=== PATIENT | female | born 1970 | race Hispanic/Latino ===

== ENCOUNTER 2021-04-07 03:15 | Inpatient (IN) | payer SELFPAY ==
[2021-04-07] VITALS (9 sets, daily range): BP systolic 100–149; BP diastolic 60–88
[~2021-04-07] VITALS: Ht 162.6 cm; Wt 47.9 kg
[2021-04-07] MEDS ORDERED: 0.9%NACL 1000ML 1,000 ML IV ONE (04:00)
[2021-04-07] MEDS ORDERED: LORAZEPAM 2 MG/ML 1 ML VIAL IVP ONE ×2 (04:00→07:00)
[2021-04-07 05:24] LABS: BASOPHILS % (AUTO) 0.7 % (0.0-5.0); EOSINOPHILS % (AUTO) 1.3 % (0.0-8.0); HEMATOCRIT 33.6 % (36-48); LYMPHOCYTES % (AUTO) 13.6 % (21.0-51.0); MEAN CORPUSCULAR HEMOGLOBIN 36.1 pg (27.0-33.0); MEAN CORPUSCULAR HGB CONC 35.4 g/dL (32.0-36.0); MEAN CORPUSCULAR VOLUME 101.8 fL (79-99); PLATELET COUNT (AUTO) 110 K/uL (130-400); RED CELL DISTRIBUTION WIDTH 11.5 % (11.0-15.5)
[2021-04-07 05:35] LABS: INR 1.03 (0.85-1.15); PROTHROMBIN TIME 11.2 SEC (9.6-11.6)
[2021-04-07 05:36] LABS: PARTIAL THROMBOPLASTIN TIME 26.6 SEC (26.3-35.5)
[2021-04-07 05:39] LABS: ALBUMIN 4.5 g/dL (3.5-5.0); BILIRUBIN,DIRECT 0.4 mg/dL (0.0-0.3); BILIRUBIN,TOTAL 1.5 mg/dL (0.2-1.0); CREATININE 0.8 mg/dL (0.5-1.5); MAGNESIUM 1.5 mg/dL (1.80-2.40); TOTAL PROTEIN, SERUM 8.7 g/dL (6.0-8.3)
[2021-04-07 05:56] LABS: POTASSIUM 2.9 mmol/L (3.5-5.1)
[2021-04-07] MEDS ORDERED: KCL 20 MEQ ERTAB PO ONE ×2 (06:00→06:11)
[2021-04-07] MEDS: MAGNESIUM OXIDE 400 MG TABLET PO SCH (06:00)
[2021-04-07] MEDS ORDERED: MAGNESIUM OXIDE 400 MG TABLET PO ONE (06:11)
[2021-04-07] MEDS ORDERED: LORAZEPAM 2 MG/ML 1 ML VIAL IVP SCH (06:30)
[2021-04-07] MEDS ORDERED: POTASSIUM CHLORIDE 10% ELIXIR 20 MEQ/15 ML UDCUP PO PRN (07:30)
[2021-04-07] MEDS ORDERED: ACETAMINOPHEN 325 MG TAB PO PRN ×2 (07:30)
[2021-04-07] MEDS: THIAMINE HCL 100 MG, FOLIC ACID 1 MG, M.V.I. IV [ADULT] 10 ML in 0.9%NACL 1000ML 1,000 ML IV SCH (07:30)
[2021-04-07] MEDS ORDERED: LIDOCAINE HCL-MPF 1% 2ML VIAL IV PRN (07:30)
[2021-04-07] MEDS ORDERED: CHLORDIAZEPOXIDE HCL 25 MG CAP PO PRN (07:30)
[2021-04-07] MEDS ORDERED: ONDANSETRON 4MG INJ IV PRN (07:30)
[2021-04-07] MEDS ORDERED: PHARMACY COMMUNICATION MISC PRN (07:30)
[2021-04-07] MEDS ORDERED: LACTULOSE 20 GM/30 ML UDCUP PO PRN (07:30)
[2021-04-07] MEDS ORDERED: LORAZEPAM 2 MG/ML 1 ML VIAL IVP PRN (07:30)
[2021-04-07] MEDS: CHLORDIAZEPOXIDE HCL 25 MG CAP PO SCH ×4 (08:17→20:00)
[2021-04-07 10:01] LABS: INR 1.04 (0.85-1.15); PROTHROMBIN TIME 11.3 SEC (9.6-11.6)
[2021-04-07 10:02] LABS: PARTIAL THROMBOPLASTIN TIME 25.6 SEC (26.3-35.5)
[2021-04-07 11:13] LABS: CREATININE 0.4 mg/dL (0.5-1.5); MAGNESIUM 1.7 mg/dL (1.80-2.40)
[2021-04-07 11:15] LABS: POTASSIUM 2.7 mmol/L (3.5-5.1)
[2021-04-07] MEDS: POTASSIUM CHLORIDE 10MEQ/100ML 100 ML IV PRN ×2 (11:56→17:33)
[2021-04-07] MEDS: LORAZEPAM 2 MG/ML 1 ML VIAL IVP SCH ×3 (13:00→21:00)
[2021-04-07] MEDS ORDERED: CHLORDIAZEPOXIDE HCL 25 MG CAP PO ONE (14:00)
[2021-04-07] MEDS: MAGNESIUM 2GM PREMIX 50ML 50 ML IV PRN (16:12)
[2021-04-07] MEDS: LORAZEPAM 2 MG/ML 1 ML VIAL IVP PRN (18:41)
[2021-04-08] MEDS: CHLORDIAZEPOXIDE HCL 25 MG CAP PO SCH
[2021-04-08] MEDS: KCL 20 MEQ ERTAB PO PRN ×4 (00:23→06:44)
[2021-04-08] MEDS: LORAZEPAM 2 MG/ML 1 ML VIAL IVP PRN ×2 (00:30→04:26)
[2021-04-08] MEDS: CHLORDIAZEPOXIDE HCL 25 MG CAP PO PRN ×2 (00:30→04:26)
[2021-04-08] MEDS: LORAZEPAM 2 MG/ML 1 ML VIAL IVP SCH ×3 (00:35→07:40)
[2021-04-08 04:00] VITALS: BP 100/62
[2021-04-08] MEDS: MAGNESIUM OXIDE 400 MG TABLET PO SCH (04:34)
[2021-04-08 05:19] LABS: BASOPHILS % (AUTO) 1.4 % (0.0-5.0); EOSINOPHILS % (AUTO) 2.2 % (0.0-8.0); HEMATOCRIT 30.6 % (36-48); LYMPHOCYTES % (AUTO) 13.5 % (21.0-51.0); MEAN CORPUSCULAR HEMOGLOBIN 35.7 pg (27.0-33.0); MEAN CORPUSCULAR HGB CONC 34.6 g/dL (32.0-36.0); MONOCYTES % (AUTO) 16.6 % (3.0-13.0); NEUTROPHILS % (AUTO) 65.8 % (40.0-77.0); PLATELET COUNT (AUTO) 116 K/uL (130-400); RED BLOOD CELL COUNT(AUTO) 2.97 MIL/uL (4.00-5.50); RED CELL DISTRIBUTION WIDTH 11.6 % (11.0-15.5); WHITE BLOOD COUNT (AUTO) 5.9 K/uL (4.8-10.8)
[2021-04-08 05:28] LABS: CREATININE 0.4 mg/dL (0.5-1.5); POTASSIUM 3.2 mmol/L (3.5-5.1)
[2021-04-08] MEDS: THIAMINE HCL 100 MG, FOLIC ACID 1 MG, M.V.I. IV [ADULT] 10 ML in 0.9%NACL 1000ML 1,000 ML IV SCH ×2 (07:30→12:15)
[2021-04-08 08:00] VITALS: BP 119/76
[2021-04-08] MEDS: THIAMINE HCL 100 MG/ML 2ML VIAL IM SCH (09:27)
[2021-04-08] MEDS: FOLIC ACID 5 MG/ML VIAL IV SCH (09:27)
[2021-04-08] MEDS ORDERED: COMPOUND IV REFRIGERATED 1 EACH IVSOLN MISC PRN (09:30)
[2021-04-08 11:42] VITALS: BP 123/72
[2021-04-08 16:17] VITALS: BP 95/65
[2021-04-08 20:08] VITALS: BP 127/76
[2021-04-09] VITALS (7 sets, daily range): BP systolic 99–138; BP diastolic 55–86
[2021-04-09] MEDS: KCL 20 MEQ ERTAB PO PRN ×2 (01:50→03:58)
[2021-04-09 06:13] LABS: EOSINOPHILS % (AUTO) 2.4 % (0.0-8.0); HEMATOCRIT 29.9 % (36-48); MEAN CORPUSCULAR HEMOGLOBIN 35.8 pg (27.0-33.0); MEAN CORPUSCULAR HGB CONC 33.8 g/dL (32.0-36.0); MONOCYTES % (AUTO) 21.2 % (3.0-13.0); NEUTROPHILS % (AUTO) 60.2 % (40.0-77.0); PLATELET COUNT (AUTO) 138 K/uL (130-400); RED BLOOD CELL COUNT(AUTO) 2.82 MIL/uL (4.00-5.50); RED CELL DISTRIBUTION WIDTH 11.6 % (11.0-15.5); WHITE BLOOD COUNT (AUTO) 5.8 K/uL (4.8-10.8)
[2021-04-09 06:43] LABS: ALBUMIN 3.2 g/dL (3.5-5.0); BILIRUBIN,TOTAL 0.5 mg/dL (0.2-1.0); CREATININE 0.4 mg/dL (0.5-1.5); MAGNESIUM 1.5 mg/dL (1.80-2.40); POTASSIUM 3.4 mmol/L (3.5-5.1); TOTAL PROTEIN, SERUM 6.7 g/dL (6.0-8.3)
[2021-04-09] MEDS: THIAMINE HCL 100 MG/ML 2ML VIAL IM SCH (06:58)
[2021-04-09] MEDS: FOLIC ACID 5 MG/ML VIAL IV SCH (06:58)
[2021-04-09] MEDS: THIAMINE HCL 100 MG, FOLIC ACID 1 MG, M.V.I. IV [ADULT] 10 ML in 0.9%NACL 1000ML 1,000 ML IV SCH (08:32)
[2021-04-09] MEDS: MAGNESIUM 2GM PREMIX 50ML 50 ML IV PRN (09:21)
[2021-04-09] MEDS: NICOTINE 14 MG/ 24 HR PATCH TD SCH (12:30)
[2021-04-09] MEDS ORDERED: NICOTINE 14 MG/ 24 HR PATCH TD SCH (12:30)
[2021-04-10] VITALS: BP 105/69
[2021-04-10 00:08] LABS: APPEARANCE,URINE Clear (CLEAR); BILIRUBIN,URINE Negative (NEGATIVE); COLOR,URINE Yellow (YELLOW); GLUCOSE, URINE (UA) Negative (NEGATIVE); KETONES,URINE Negative (NEGATIVE); LEUKOCYTE ESTERASE ,URINE Small (NEGATIVE); NITRATE,URINE Negative (NEGATIVE); OCCULT BLOOD,URINE Negative (NEGATIVE); PROTEIN,URINE Negative (NEGATIVE)
[2021-04-10 00:15] LABS: BACTERIA,URINE Few /HPF (None Seen); RBC,URINE None Seen /HPF (0-1); SQUAMOUS EPITHELIAL CELL,UR Few /HPF (0-2)
[2021-04-10 00:16] LABS: AMPHET/METH SCREEN,URINE NEGATIVE (NEGATIVE); BARBITURATE SCREEN, URINE NEGATIVE (NEGATIVE); BENZODIAZEPINES SCREEN,URINE POSITIVE (NEGATIVE); CANNABINOID SCREEN,URINE NEGATIVE (NEGATIVE); COCAINE SCREEN,URINE NEGATIVE (NEGATIVE); OPIATE SCREEN,URINE NEGATIVE (NEGATIVE); PHENCYCLIDINE SCREEN,URINE NEGATIVE (NEGATIVE)
[2021-04-10 03:59] VITALS: BP 101/53
[2021-04-10 06:08] LABS: BASOPHILS % (AUTO) 0.8 % (0.0-5.0); EOSINOPHILS % (AUTO) 2.6 % (0.0-8.0); HEMATOCRIT 32.9 % (36-48); LYMPHOCYTES % (AUTO) 16.3 % (21.0-51.0); MEAN CORPUSCULAR HEMOGLOBIN 36.3 pg (27.0-33.0); MEAN CORPUSCULAR HGB CONC 33.7 g/dL (32.0-36.0); MEAN CORPUSCULAR VOLUME 107.5 fL (79-99); MONOCYTES % (AUTO) 24.2 % (3.0-13.0); NEUTROPHILS % (AUTO) 55.5 % (40.0-77.0); PLATELET COUNT (AUTO) 188 K/uL (130-400); RED BLOOD CELL COUNT(AUTO) 3.06 MIL/uL (4.00-5.50); RED CELL DISTRIBUTION WIDTH 11.8 % (11.0-15.5); WHITE BLOOD COUNT (AUTO) 6.4 K/uL (4.8-10.8)
[2021-04-10 06:28] LABS: ALBUMIN 3.8 g/dL (3.5-5.0); BILIRUBIN,TOTAL 0.5 mg/dL (0.2-1.0); CREATININE 0.5 mg/dL (0.5-1.5); MAGNESIUM 1.6 mg/dL (1.80-2.40); POTASSIUM 3.3 mmol/L (3.5-5.1); TOTAL PROTEIN, SERUM 7.7 g/dL (6.0-8.3)
[2021-04-10] MEDS: MAGNESIUM 2GM PREMIX 50ML 50 ML IV PRN (07:42)
[2021-04-10 07:58] VITALS: BP 132/83
[2021-04-10] MEDS: NICOTINE 14 MG/ 24 HR PATCH TD SCH (09:49)
[2021-04-10] MEDS: THIAMINE HCL 100 MG/ML 2ML VIAL IM SCH (09:49)
[2021-04-10] MEDS: FOLIC ACID 5 MG/ML VIAL IV SCH (09:49)
[2021-04-10] MEDS: KCL 20 MEQ ERTAB PO PRN (09:51)
[2021-04-10 11:42] VITALS: BP 92/59
[2021-04-10] MEDS ORDERED: FOLI0.4T6 PO (12:19)
[2021-04-10] MEDS ORDERED: THIA100T75 PO (12:19)
[2021-04-10] MEDS ORDERED: MAGN400C PO (12:19)
== END 2021-04-10 16:35 | disposition home or self-care (01) | DRG 92 ==
LOC: EDH 03:15 → OBSVTOIN 03:16 → EDHIP 03:16 → UNDOADMOB 07:06 → 4BH 13:31 → 4CH 04-09 17:47
PROVIDERS: ADMIT Hospitalist; ATTEND Hospitalist
DX: G25.2 Other specified forms of tremor (principal); E87.1 Hypo-osmolality and hyponatremia; E44.0 Moderate protein-calorie malnutrition; Z68.1 Body mass index [BMI] 19.9 or less, adult; F10.231 Alcohol dependence with withdrawal delirium; F10.229 Alcohol dependence with intoxication, unspecified; E87.6 Hypokalemia; Y90.0 Blood alcohol level of less than 20 mg/100 ml; D53.9 Nutritional anemia, unspecified; D69.6 Thrombocytopenia, unspecified; E83.42 Hypomagnesemia; R74.01 Elevation of levels of liver transaminase levels
CPT/HCPCS: 36415; 70450; 71045; 76705; 80048; 80053; 80076; 80305; 81001; 82140; 82948; 83690; 83735; 84132; 85025; 85610; 85730; 93005; 97039; G0378; J2060; J3411; J3475; J3490; J7030

== ENCOUNTER 2022-07-05 16:11 | Emergency (ER) | payer OTHER ==
[~2022-07-05] VITALS: Ht 165.1 cm; Wt 47.6 kg
[~2022-07-05 16:11] MED LIST: FOLI0.4T6 PO; MAGN400C PO; THIA100T75 PO
[2022-07-05 16:22] VITALS: BP 133/91
[2022-07-05] MEDS ORDERED: 0.9%NACL 1000ML 1,000 ML IV ONE (16:30)
[2022-07-05 16:41] LABS: EOSINOPHILS % (AUTO) 3.9 % (0.0-8.0); HEMATOCRIT 38.9 % (36-48); MEAN CORPUSCULAR HEMOGLOBIN 35.8 pg (27.0-33.0); MEAN CORPUSCULAR HGB CONC 35.5 g/dL (32.0-36.0); MEAN CORPUSCULAR VOLUME 100.8 fL (79-99); MONOCYTES % (AUTO) 13.1 % (3.0-13.0); NEUTROPHILS % (AUTO) 52.8 % (40.0-77.0); PLATELET COUNT (AUTO) 147 K/uL (130-400); RED BLOOD CELL COUNT(AUTO) 3.86 MIL/uL (4.00-5.50); RED CELL DISTRIBUTION WIDTH 13.2 % (11.0-15.5); WHITE BLOOD COUNT (AUTO) 5.9 K/uL (4.8-10.8)
[2022-07-05 16:56] LABS: CARBON DIOXIDE 26 mmol/L (21-32); CHLORIDE 93 mmol/L (101-111); CREATININE 0.4 mg/dL (0.5-1.5); GLOMERULAR FILTR. RATE CALC 180 mL/min (>60); GLUCOSE,RANDOM 99 mg/dL (70-105); POTASSIUM 3.9 mmol/L (3.5-5.1); SODIUM SERUM 133 mmol/L (136-145); UREA NITROGEN, BLOOD 4 mg/dL (7-18)
[2022-07-05 16:57] LABS: APPEARANCE,URINE CLEAR (CLEAR); BILIRUBIN,URINE NEGATIVE (NEGATIVE); COLOR,URINE COLORLESS (YELLOW); GLUCOSE, URINE (UA) NEGATIVE (NEGATIVE); KETONES,URINE NEGATIVE (NEGATIVE); LEUKOCYTE ESTERASE ,URINE NEGATIVE Leu/uL (NEGATIVE); NITRATE,URINE NEGATIVE (NEGATIVE); OCCULT BLOOD,URINE NEGATIVE (NEGATIVE); PH,URINE 5.5 (5.0-8.0); PROTEIN,URINE NEGATIVE (NEGATIVE); UROBILINOGEN,URINE 0.2 mg/dL (0.2-1.0)
[2022-07-05 17:02] LABS: BACTERIA,URINE FEW /HPF (None Seen); RBC,URINE 0-1 /HPF (0-1); WBC,URINE 0-1 /HPF (0-1)
[2022-07-05 17:06] LABS: ALANINE AMINOTRANSFERASE 80 U/L (12-78); ALBUMIN 4.9 g/dL (3.5-5.0); AMMONIA < 3 umol/L (11-32); ASPARTATE AMINOTRANSFERASE 123 U/L (10-37); CREATINE KINASE, TOTAL 205 U/L (21-232); HCG,QUANTITATIVE 0 mIU/mL (0-5); LIPASE 276 U/L (114-286); TOTAL PROTEIN, SERUM 8.8 g/dL (6.0-8.3)
[2022-07-05] MEDS ORDERED: IOHEXOL 350 MG/ML 100ML INFUS..BTL IV ONE (17:13)
== END 2022-07-05 18:54 | disposition home or self-care (01) ==
LOC: EDH 16:11
DX: R53.1 Weakness (principal); R10.11 Right upper quadrant pain; R63.4 Abnormal weight loss; Z79.899 Other long term (current) drug therapy
CPT/HCPCS: 99285; 70450; 96360; 71045; 82550; 84484; 80053; 84702; 82140; 83690; 85025; 81001; 36415; 74177; 93005; J7030; Q9967